=== PATIENT | female | born 1970 | race Caucasian/White ===

== ENCOUNTER → 2020-09-19 | Outpatient (CLI) | payer SELFPAY ==
--- NOTE | 2020-09-19 11:44 | Diagnostic Imaging Report ---
INDICATION: Bilateral wrist pain. COMPARISON: None. FINDINGS: Multiple radiographic views of the bilateral wrists were obtained and demonstrate no acute fracture or dislocation. Well-corticated extraosseous calcification is seen adjacent to the distal tip of the ulna and is consistent with old non-unified ulnar styloid fracture. There are no focal osseous lesions. No avascular necrosis is seen. The visualized soft tissue structures are unremarkable. The pronator fat pad is not displaced. There are no radio opaque foreign bodies. IMPRESSION: 1. Old non-unified ulnar styloid fracture on the left. 2. Otherwise, unremarkable radiographic exam of the wrists. Dictated by: Dictated on workstation # [id number]
== END ==
LOC: RAD FS 10:36
PROVIDERS: ATTEND Nurse Practitioner
DX: S52.612K Displaced fracture of left ulna styloid process, subsequent encounter for closed fracture with nonunion (principal); M25.531 Pain in right wrist

== ENCOUNTER 2021-01-17 09:39 | Outpatient (RCR) | payer OTHER | END 2021-01-17 13:27 | disposition home or self-care (01) | PROVIDERS: ATTEND Family Medicine | DX: M19.90 Unspecified osteoarthritis, unspecified site (principal); M17.11 Unilateral primary osteoarthritis, right knee; M17.12 Unilateral primary osteoarthritis, left knee; E66.9 Obesity, unspecified; R68.89 Other general symptoms and signs; Z68.43 Body mass index [BMI] 50.0-59.9, adult ==

== ENCOUNTER → 2021-07-13 | Outpatient (CLI) | payer OTHER ==
--- NOTE | 2021-07-13 11:33 | Diagnostic Imaging Report ---
INDICATION: Right shoulder pain 3 views of the right shoulder show no fracture, dislocation or other acute abnormalities. IMPRESSION: No acute abnormality seen in the right shoulder Dictated by: Dictated on workstation # [id number]
--- NOTE | 2021-07-13 11:34 | Diagnostic Imaging Report ---
INDICATION: Left knee pain AP and lateral views of left knee show degenerative changes with joint space narrowing and osteophytes forming in all 3 compartments of the knee. IMPRESSION: Moderate tricompartmental degenerative changes of the knee. No fracture or acute abnormality seen. Dictated by: Dictated on workstation # [id number]
== END ==
LOC: RAD 09:50
PROVIDERS: ATTEND Anesthesiology Pain Medicine
DX: Z02.71 Encounter for disability determination (principal); M17.12 Unilateral primary osteoarthritis, left knee; M25.011 Hemarthrosis, right shoulder
CPT/HCPCS: 73030; 73560

== ENCOUNTER 2022-01-08 12:19 | Outpatient (RCR) | payer OTHER | END 2022-01-13 | disposition home or self-care (01) | PROVIDERS: ATTEND Family Medicine | DX: M79.7 Fibromyalgia (principal); M17.0 Bilateral primary osteoarthritis of knee; F32.A Depression, unspecified; E66.01 Morbid (severe) obesity due to excess calories; Z68.43 Body mass index [BMI] 50.0-59.9, adult; K21.9 Gastro-esophageal reflux disease without esophagitis; R60.0 Localized edema ==